=== PATIENT | female | born 1990 | race Caucasian/White ===

== ENCOUNTER 2021-02-20 19:54 | Emergency (ER) | payer OTHER ==
[~2021-02-20] VITALS: Ht 170.2 cm; Wt 96.4 kg
--- NOTE | 2021-02-20 20:12 | PHYS DOC ---
Past History Past Medical History: Anemia, Anxiety, STD Past Medical History Hx. of abnormal Pap exams General Adult HPI: HPI: ".. I worried...I ve had a lot of vaginal bleeding.. Some clots coming out.. I am a little bit early... I am very anxious about it ,,,I almost feel like I am getting dizzy and short of air .. I am worried.. I have lost too much blood.." Patient is a 30 year old female dependent who presents with above hx and complaints of reports excessive vaginal bleeding. Patient states that onset of her period is early. Patient denies any recent trauma or sexual intercourse. Patient denies any use of dildos or other instrumentation. Patient has had past history of PID and gonorrhea in 1999. . Has [id number] lifetime sexual partners. Patient reports she did have had abnormal Pap exams in the past. Pt.under went serial exams with her [employer] was advised that the dysplasia had cleared. Patient advised she was told she no longer needed yearly PAP exams. It has been approximately 5 years since last exam. No history of immunosuppression. Patient has had anemia in the past. Patient denies any history of coagulopathy. Has not taken excessive anti-inflammatories or other anticoagulants. Patient denies any vaginal discharge before the onset of her current menses. Patient does have past medical history of anxiety. Pt. follows at [place] with Cathryn. Review of Systems: Review of Systems: Constitutional: Denies fever or chills Eyes: Denies change in visual acuity HENT: Denies nasal congestion or sore throat Respiratory: Denies cough or shortness of breath Cardiovascular: Denies chest pain or edema GI: Denies abdominal pain, nausea, vomiting, bloody stools or diarrhea : Denies dysuria. Complains of excessive vaginal bleeding Musculoskeletal: Denies back pain or joint pain Integument: Denies rash Neurologic: Denies headache, focal weakness or sensory changes. Complains of dizziness Endocrine: Denies polyuria or polydipsia Lymphatic: Denies swollen glands Psychiatric: Complains of of anxiety Family History: Family History: Noncontributory to presentation Current Medications: Current Meds: See nursing for home meds Allergies: Allergies: No known drug allergies Physical Exam: PE: Constitutional: Well developed, well nourished, in acute emotional distress, very anxious,, non-toxic appearance. [] HENT: Normocephalic, atraumatic, bilateral external ears normal, oropharynx dry, no oral exudates, nose normal. [] Eyes: PERRLA, EOMI, conjunctiva normal, no discharge. [] Neck: Normal range of motion, no tenderness, supple, no stridor. [] Cardiovascular: Bradycardia heart rate regular rhythm, no murmur [] bedside monitor shows a sinus bradycardia with no acute morphology Lungs & Thorax: Bilateral breath sounds equal apex with few scattered wheezes. Auscultation [] Abdomen: Bowel sounds normal, soft, very mild lower abdomen tenderness, no masses, no pulsatile masses. [] Very mild or minimal rebound. ( After discussion with patient -patient deferred pelvic exam until follow-up of her primary care or OB/GYN0 Skin: Warm, dry, no erythema, no rash. Cap refill less than 2 seconds in fingers Back: No tenderness, no CVA tenderness. [] Extremities: No tenderness, no cyanosis, no clubbing, ROM intact, no edema. No cording. No psoas sign. Neurologic: Alert and oriented X 3, normal motor function, normal sensory function, no focal deficits noted. Patient amatory without problems. Psychologic: Affect n extremely anxious, judgement normal, mood normal. [] EKG: EKG: [] Radiology/Procedures: Radiology/Procedures: [] Heart Score: C/O Chest Pain: N/A HEART Score for Chest Pain: HEART Score for Chest Pain Response (Comments) Value History Slighlty/Non-Suspicious 0 ECG Normal 0 Age < 45 0 Risk Factors No Risk Factors 0 Total 0 Risk Factors: Risk Factors: DM, Current or recent (<one month) smoker, HTN, HLP, family history of CAD, obesity. Risk Scores: Score 0 - 3: 2.5% MACE over next 6 weeks - Discharge Home Score 4 - 6: 20.3% MACE over next 6 weeks - Admit for Clinical Observation Score 7 - 10: 72.7% MACE over next 6 weeks - Early Invasive Strategies Course & Med Decision Making: Course & Med Decision Making Pertinent Labs and Imaging studies reviewed. (See chart for details) Reviewed all patient's labs. Encourage patient to keep follow-up with her [employer] and get a pelvic exam. Continue pad counts. Push fluids. Push fruit juices. Follow-up up essential since she had previous abnormal Pap exams. Patient feels her risk of STDs at this time is very low. Return if any concerns. May take Tylenol and ibuprofen for discomfort. Recheck her blood pressure with primary on followup. Impression: 1. Dysfunctional uterine bleeding 2. Mild Hypokalemia 3.3 3. Hx. of Anxiety 4. Hx. of abnormal Pap exams 5. Midl dehydration 6. Bradycardia [] Dragon Disclaimer: Dragon Disclaimer: This electronic medical record was generated, in whole or in part, using a voice recognition dictation system. Departure Departure: Referrals: HORTENSIA PAYTON DO, [facility] (PCP) Lauren Disclaimer This chart was dictated in whole or in part using Voice Recognition software in a busy, high-work load, and often noisy Emergency Department environment. It may contain unintended and wholly unrecognized errors or omissions. JOAQUINA SHAH MD Feb 20, 2021 20:12
[2021-02-20] MEDS: IV RINGERS SOLUTION,LACTATED 1,000 ML IV SCH (20:32)
[2021-02-20] MEDS: FAMOTIDINE 20 MG/2 ML VIAL IVP ONE (20:32)
[2021-02-20] MEDS: ONDANSETRON PF 4 MG/2 ML VIAL. IVP ONE (20:33)
[2021-02-20 20:36] VITALS: BP 149/62
[2021-02-20 20:44] LABS: BASO # 0.1 x10^3/uL (0.0-0.2); BASO % 1 % (0-3); EOS # 0.2 x10^3/uL (0.0-0.7); EOS % 2 % (0-3); HEMATOCRIT 41.3 % (36.0-47.0); HEMOGLOBIN 14.1 g/dL (12.0-15.5); LYMPH # 3.7 x10^3/uL (1.0-4.8); LYMPH % 39 % (24-48); MEAN CORPUSCULAR HEMOGLOBIN 30 pg (25-35); MEAN CORPUSCULAR HGB CONC 34 g/dL (31-37); MEAN CORPUSCULAR VOLUME 89 fL (79-100); MONO # 0.5 x10^3/uL (0.0-1.1); MONO % 6 % (0-9); NEUT % 53 % (31-73); PLATELET COUNT 245 x10^3/uL (140-400); RED BLOOD COUNT 4.65 x10^6/uL (3.50-5.40); RED CELL DISTRIBUTION WIDTH 13.7 % (11.5-14.5); WHITE BLOOD COUNT 9.5 x10^3/uL (4.0-11.0)
[2021-02-20 20:54] LABS: CREATININE 0.9 mg/dL (0.6-1.0); POTASSIUM 3.3 mmol/L (3.5-5.1)
[2021-02-20 21:00] LABS: ALBUMIN 4.2 g/dL (3.4-5.0); DIRECT BILIRUBIN 0.1 mg/dL (0.0-0.2); TOTAL BILIRUBIN 0.3 mg/dL (0.2-1.0); TOTAL PROTEIN 7.6 g/dL (6.4-8.2)
[2021-02-20 22:39] LABS: BARBITURATES NEG (NEG); BENZODIAZEPINES NEG (NEG); CANNABINOIDS NEG (NEG); COCAINE NEG (NEG); METHADONE NEG (NEG); OPIATES NEG (NEG); PHENCYCLIDINE NEG (NEG)
[2021-02-20 22:40] LABS: AMPHETAMINE/METHAMPHETAMINE NEG (NEG); BACTERIA,URINE 0 /HPF (0-FEW); BILIRUBIN,URINE NEG (NEG); CLARITY,URINE CLOUDY; COLOR,URINE YELLOW; GLUCOSE,URINE NEG (NEG); NITRITE,URINE NEG (NEG); RBC,URINE >40 /HPF (0-2); SQUAMOUS EPITHELIAL CELL,UR FEW /LPF; UROBILINOGEN,URINE 0.2 mg/dL (0.2 mg/dL); WBC,URINE 0 /HPF (0-4)
== END 2021-02-20 23:19 | disposition home or self-care (01) ==
LOC: ER 19:54
DX: N93.8 Other specified abnormal uterine and vaginal bleeding (principal); E87.6 Hypokalemia; R00.1 Bradycardia, unspecified; E86.0 Dehydration; F41.9 Anxiety disorder, unspecified; R42 Dizziness and giddiness
CPT/HCPCS: 36415; 80048; 80076; 80307; 81001; 81025; 85025; 85610; 85730; 86850; 86900; 86901; 96361; 96374; 96375; 99284; J2405; J3490; J7120

== ENCOUNTER 2021-09-18 22:17 | Emergency (ER) | payer OTHER ==
[~2021-09-18] VITALS: Ht 170.2 cm; Wt 93.4 kg
[2021-09-18 22:25] VITALS: BP 135/84
--- NOTE | 2021-09-18 22:25 | PHYS DOC ---
Past History Past Medical History: Anemia, Anxiety, STD Additional Past Medical Histor: irregula periods Past Surgical History: , Other General Adult HPI: HPI: Patient is a 30-year-old female here with her son with report of nausea, vomiting, diarrhea symptoms. The patient brought her son in for vomiting and diarrhea symptoms. The patient's sibling and the patient's are home with similar symptoms as well. The patient reports subjective chills, no documented fever. She reports lower abdominal cramping. Denies urinary symptoms. She denies hematemesis, melena or hematochezia. Denies recent travel, hospitalization, recent antibiotic use. She reports that yesterday she had a sore throat, headache and some dizziness. She denies chest pain, cough, dyspnea. She reports that she has not been able to eat and drink as much as she would like. She reports that she is fully vaccinated against COVID-19, she had breakthrough COVID in May of this year. Review of Systems: Review of Systems: As per HPI Allergies: Allergies: Allergies Coded Allergies Type Severity Reaction Last Updated Verified No Known Drug Allergies 02/20/21 No Physical Exam: PE: Constitutional: Well developed, well nourished, no acute distress, non-toxic appearance. [] HENT: Normocephalic, atraumatic, oropharynx is patent and clear, mucous membranes are moist Eyes: Conjunctive are normal, sclera anicteric Neck: Normal range of motion, no tenderness, supple, no stridor. No meningismus Cardiovascular:Heart rate regular rhythm, well-perfused, +2 radial pulses Lungs & Thorax: Bilateral breath sounds clear to auscultation [] Abdomen: Abdomen is soft, nondistended, nontender to palpation. No CVA tenderness. No palpable masses organomegaly. Skin: Warm, dry, no erythema, no rash. No jaundice. Back: No tenderness, no CVA tenderness. [] Extremities: No tenderness, no cyanosis, no clubbing, ROM intact, no edema. [] Neurologic: Alert and oriented X 3, normal motor function, normal sensory function, no focal deficits noted. [] Psychologic: Affect normal, judgement normal, mood normal. Pleasant and cooperative. EKG: EKG: [] Radiology/Procedures: Radiology/Procedures: [] Heart Score: C/O Chest Pain: No Risk Factors: Risk Factors: DM, Current or recent (<one month) smoker, HTN, HLP, family hi story of CAD, obesity. Risk Scores: Score 0 - 3: 2.5% MACE over next 6 weeks - Discharge Home Score 4 - 6: 20.3% MACE over next 6 weeks - Admit for Clinical Observation Score 7 - 10: 72.7% MACE over next 6 weeks - Early Invasive Strategies Course & Med Decision Making: Course & Med Decision Making Pertinent Labs and Imaging studies reviewed. (See chart for details) P.o. ODT Zofran is given here. I discussed the findings, differential diagnosis and plan of care with the patient. She has a benign, nonsurgical abdominal exam. She does not appear to be clinically dehydrated, she is nontoxic- appearing. I discussed home care instructions with her. No current indication for further invasive exams, imaging or admission at this time. Strict return precautions are given. She will be prescribed ODT Zofran for discharge home. She verbalizes understanding. She should contact her PCP for follow-up. Lauren Disclaimer: Lauren Disclaimer: This electronic medical record was generated, in whole or in part, using a voice recognition dictation system. Departure Departure: Impression: Primary Impression: Nausea vomiting and diarrhea Disposition: HOME / SELF CARE / HOMELESS Condition: STABLE Referrals: HORTENSIA PAYTON DO, [facility] (PCP) Patient Instructions: Viral Gastroenteritis Additional Instructions: Use the medication as needed/as directed. Eat a bland diet, drink clear fluids. Return to the ER for more severe localized abdominal pain, uncontrolled vomiting, dehydration, weakness or any other concerns. Follow-up with your primary care physician. Scripts Ondansetron (ONDANSETRON ODT) 4 Mg Tab.rapdis 1 TAB PO PRN Q6-8HRS for vomiting, #20 TAB Prov: MARGOT MÁRQUEZ DO 09/19/21 MARGOT MÁRQUEZ DO September 18, 2021 22:25
[2021-09-18] MEDS ORDERED: ONDANSETRON ODT 4 MG TAB.RAPDIS PO ONE (23:00)
[2021-09-18 23:41] LABS: CLARITY,URINE CLEAR; COLOR,URINE YELLOW
[2021-09-18 23:42] LABS: BACTERIA,URINE 0 /HPF (0-FEW); GLUCOSE,URINE NEG (NEG); NITRITE,URINE NEG (NEG); RBC,URINE OCC /HPF (0-2); U PREG PATIENT NEGATIVE (NEG); UROBILINOGEN,URINE 0.2 mg/dL (0.2 mg/dL); WBC,URINE 0 /HPF (0-4)
[2021-09-18 23:49] LABS: INFLUENZA A PATIENT NEGATIVE (NEGATIVE); INFLUENZA B PATIENT NEGATIVE (NEGATIVE)
[2021-09-19] MEDS ORDERED: ONDA4TAB12 PO (00:29)
== END 2021-09-19 00:39 | disposition home or self-care (01) ==
LOC: ER 22:17
DX: R11.2 Nausea with vomiting, unspecified (principal); R19.7 Diarrhea, unspecified; R10.30 Lower abdominal pain, unspecified; Z20.822 Contact with and (suspected) exposure to COVID-19; Z86.2 Personal history of diseases of the blood and blood-forming organs and certain disorders involving the immune mechanism; Z98.890 Other specified postprocedural states
CPT/HCPCS: 81001; 81025; 87428; 99283; Q0162